=== PATIENT | male | born 2005 | race Two or more races ===

== ENCOUNTER → 2025-05-26 | Outpatient (CLI) | payer MEDICAID, SELFPAY ==
--- NOTE | 2025-05-26 07:15 | XR_ITS ---
Examination: Abdomen sonogram, complete Date and time of exam: May 26, 2025, 0726 hours INDICATIONS: Diagnosis fatty liver. Technique: Multiple real-time grayscale transabdominal sonographic images of the abdomen have been obtained. Findings: Normal gallbladder. Normal common bile duct 0.3 cm. Pancreatic head 4.1 cm Aorta not enlarged. Liver 19.6 cm fatty infiltration no focal liver lesions. Normal hepatopedal portal venous flow. Patent IVC. Right kidney 11.0 cm renal cortex 2.1 cm Left kidney 11.1 cm cortex 2.1 cm Moderate renal scar formation Spleen 12.5 cm IMPRESSION: Moderate hepatomegaly fatty infiltration no focal liver lesions Moderate bilateral renal parenchymal scar formation
== END | disposition home or self-care (01) ==
LOC: CDIM 07:14
PROVIDERS: Referring Provider Physician Assistant Medical; Visit Provider Physician Assistant Medical
DX: K76.0 Fatty (change of) liver, not elsewhere classified (principal); N28.89 Other specified disorders of kidney and ureter
CPT/HCPCS: 76700